=== PATIENT | female | born 1975 | race Hispanic/Latino ===

== ENCOUNTER → 2018-04-28 | Outpatient (CLI) | payer MEDICARE ==
[2018-04-28 09:35] LABS: BILIRUBIN,DIRECT 0.2 mg/dL (0.0-0.3); BILIRUBIN,TOTAL 0.8 mg/dL (0.2-1.0); TOTAL PROTEIN, SERUM 7.1 g/dL (6.0-8.3)
== END | disposition home or self-care (01) ==
LOC: RAH 08:40
PROVIDERS: ATTEND Internal Medicine Gastroenterology
DX: K76.0 Fatty (change of) liver, not elsewhere classified (principal); R94.5 Abnormal results of liver function studies
CPT/HCPCS: 36415; 76700; 80076; 82172; 82247; 82248; 82977; 83010; 83883; 84460

== ENCOUNTER → 2018-05-19 | Outpatient (CLI) | payer MEDICARE | END | disposition home or self-care (01) | LOC: RAH 05-13 10:48 | PROVIDERS: ATTEND Internal Medicine Gastroenterology | DX: K82.8 Other specified diseases of gallbladder (principal); K21.9 Gastro-esophageal reflux disease without esophagitis | CPT/HCPCS: 78227; A9537 ==

== ENCOUNTER 2023-11-05 08:33 | Day surgery (SDC) | payer MEDICARE ==
[~2023-11-05] VITALS: Ht 142.2 cm; Wt 75.7 kg
[2023-11-05] VITALS (11 sets, daily range): BP systolic 104–129; BP diastolic 59–79; PULSE 54–74; RESP 14–20
[~2023-11-05 08:33] MED LIST: ASPI-1005 PO; ATOR10TA69 PO; CA C1TAB99 PO; CYAN-35 PO; FOLI1 PO; INUL1TAB PO; LEVO50 PO
[2023-11-05] MEDS: 0.9%NACL 1000ML 1,000 ML IV ONE (09:01)
[2023-11-05] MEDS ORDERED: PROPOFOL 10 MG/ML 20ML VIAL IV ONE (10:30)
[2023-11-05] MEDS ORDERED: LIDOCAINE HCL 400MG/20ML VIAL ONE (10:30)
== END 2023-11-05 12:00 | disposition home or self-care (01) ==
LOC: ENDO 08:33 → DAH 08:33 → ENDO 12:00
PROVIDERS: ATTEND Internal Medicine Gastroenterology
DX: K21.9 Gastro-esophageal reflux disease without esophagitis (principal); K22.2 Esophageal obstruction; K92.1 Melena; K29.50 Unspecified chronic gastritis without bleeding; E66.9 Obesity, unspecified; E03.9 Hypothyroidism, unspecified; Q90.9 Down syndrome, unspecified; K62.89 Other specified diseases of anus and rectum; K76.0 Fatty (change of) liver, not elsewhere classified; K59.04 Chronic idiopathic constipation; K82.8 Other specified diseases of gallbladder; Z79.01 Long term (current) use of anticoagulants; Z86.73 Personal history of transient ischemic attack (TIA), and cerebral infarction without residual deficits; Z79.82 Long term (current) use of aspirin; Z79.890 Hormone replacement therapy; Z79.899 Other long term (current) drug therapy; Z98.890 Other specified postprocedural states; Z83.3 Family history of diabetes mellitus; Z83.49 Family history of other endocrine, nutritional and metabolic diseases; Z80.0 Family history of malignant neoplasm of digestive organs; Z68.34 Body mass index [BMI] 34.0-34.9, adult
CPT/HCPCS: 81025; 43235; J3490; J7030 ×2; J2704; A4620; A4215; A4223; A7002; A4222; A4221; A4663; A4606